=== PATIENT | male | born 1960 | race Caucasian/White ===

== ENCOUNTER 2021-04-06 08:53 | Emergency (ER) | payer OTHER, SELFPAY ==
[2021-04-06 09:11] VITALS: BP 129/88; PULSE 66; RESP 18; TEMP 36.8; O2SAT 96; BMI 36.8
--- NOTE | 2021-04-06 09:11 | XR_ITS ---
PROCEDURE INFORMATION: Exam: XR Left Knee Exam date and time: 04/06/2021 9:11 AM Age: 60 years old Clinical indication: Pain; Knee; Left TECHNIQUE: Imaging protocol: XR Left knee. Views: 3 views. COMPARISON: No relevant prior studies available. FINDINGS: Bones/joints: Normal. Soft tissues: Normal. IMPRESSION: No acute findings.
--- NOTE | 2021-04-06 09:59 | HMH.EDUTC ---
[facility] Disposition Clinical Impression: Left knee pain Qualifiers: Chronicity: acute Qualified Code(s): M25.562 - Pain in left knee Osteoarthritis of left knee Qualifiers: Osteoarthritis type: unspecified Qualified Code(s): M17.12 - Unilateral primary osteoarthritis, left knee Disposition: Home, Self-Care Condition on Discharge: Good Instructions: Osteoarthritis, DI for Osteoarthritis, DI for Knee Pain Additional Instructions: Rest the extremity, Elevate the extremity as tolerated while you are resting. Take the steroids as prescribed, Don't start them until tomorrow since you had the shot here. Follow up with Dr. Garnica (orthopedics). I put in a referral but you need to call his office and schedule an appointment. Follow up with your regular doctor. GO TO THE ER FOR ANY WORSENING SYMPTOMS Prescriptions: methylPREDNISolone [Medrol] 4 mg PO DIRECTED 6 Days #21 packet Transmission Status: Received by [facility] Referrals: Chidi Blue [Primary Care Provider] - Forms: Work/School Release Time of Disposition: 10:11 Medical Decision Making - Medical Records Medical records reviewed: No: I reviewed the patient's medical records. - Randy Inquiry Pt receiving controlled substance: No Vital Signs: 04/06/21 09:11 04/06/21 10:28 Temperature 98.2 F 98.2 F Temperature Source Oral Pulse Rate 66 Pulse Rate [Left] 66 Respiratory Rate 18 18 Blood Pressure 129/88 Blood Pressure [Right Arm] 129/88 Blood Pressure Mean [Right Arm] 101 02 Sat by Pulse Oximetry 96 Orders (Tests/Meds): ED MEDICATIONS Discontinued Medications Generic Name Dose Route Start Last Admin Trade Name Russell PRN Reason Stop Dose Admin Ketorolac Tromethamine 60 mg 04/06/21 09:58 04/06/21 10:25 Ketorolac 60mg/2ml Vial IM 04/06/21 09:59 60 mg ONCE ONE Administration Methylprednisolone Sodium Succinate 125 mg 04/06/21 09:58 04/06/21 10:25 Methylprednisolone Sod Succ 125mg Vial IM 04/06/21 09:59 125 mg ONCE ONE Administration - Radiology Data #1 Image(s): Knee Image Reviewed: Yes I reviewed the patient's radiology image, Yes I have reviewed radiologist's interpretation Preliminary Findings: Abnormal, No Fracture Seen [facility] HPI - General Stated complaint: lt knee pain Time Seen by Provider: 04/06/21 09:59 Mode of Arrival: Ambulatory Source of Information: Patient Limitations: No Limitations Description of Symptoms (Recalled from Triage Doc. by RN): pt c/o L knee pain x2 weeks. pt denies injury. pt states the last two days the pain has been much worse. pt is having difficulty walking and sleeping, he says it wakes him up at night. HEENT Symptoms (Recalled from RN notes): No Resp Symptoms (Recalled from RN notes): No Skin Symptoms (Recalled from RN notes): No MS Symptoms (Recalled from RN notes): Yes (L knee pain) Functional Status (Recalled from RN notes): na - History of Present Illness Provider Complaint: He c/o left knee pain for the past 3 weeks or so. He denies any injury. It is worse in the mornings when he first get out of bed. - Related Data Previous Rx's Medication Instructions Recorded methylPREDNISolone [Medrol] 4 mg PO DIRECTED 6 Days #21 04/06/21 packet Allergies Allergy/AdvReac Type Severity Reaction Status Date / Time No Known Allergies Allergy Verified 01/16/18 14:28 - Worker's Comp Is this a Worker's Comp case?: No [facility] History - Hepatitis A Screen Drug use history?: No High risk sexual behaviors?: No History of sexually transmitted infection?: No Currently employed?: No Childcare worker?: No Do you have indoor plumbing?: Yes Do you have electricity?: Yes Attestation statement:: This patient has been screened for Hepatitis A risk factors. I have reviewed the patient's past medical history: Yes Medical History: Denies:: Cancer, Diabetes Mellitus Type 1, Diabetes Mellitus Type 2, MRSA Amputation: No Fractures:
[2021-04-06 10:28] VITALS: BP 129/88; PULSE 66; RESP 18; TEMP 36.8
== END 2021-04-06 10:34 | disposition home or self-care (01) ==
PROVIDERS: Emergency Provider Nurse Practitioner Family; PCP Pediatrics
DX: M17.12 Unilateral primary osteoarthritis, left knee (principal)
CPT/HCPCS: 73562; 99202; G0463

== ENCOUNTER → 2021-09-30 18:04 | Outpatient (CLI) | payer OTHER, SELFPAY ==
[2021-09-30 18:34] LABS: MANUAL DIFFERENTIAL MANUAL DIFFERENTIAL (MANUAL DIFF); Microscopic, Urine URINE MICROSCOPIC (MICROSCOPIC)
[2021-09-30 18:45] LABS: Basophils # 0.3 K/mm3 (0-0.2); Eosinophils # 0.3 K/mm3 (0.0-0.4); Hematocrit 44.7 % (42.0-52.0); Hemoglobin 15.9 g/dL (14.1-18.0); Lymphocytes # 1.8 K/mm3 (0.7-4.5); Mean Corpuscular HGB Conc 35.5 g/dL (31.8-35.4); Mean Corpuscular Hemoglobin 32.8 pg (27.0-31.2); Mean Corpuscular Volume 92.4 fl (80-94); Mean Platelet Volume 10.2 fl (7.4-10.4); Monocytes # 0.5 K/mm3 (0.1-1.0); Monocytes % 6.3 % (1.7-9.3); Neutrophils # 5.5 K/mm3 (1.8-7.8); Neutrophils % 65.7 % (37.0-80.0); Platelet Count 190 K/mm3 (142-424); Red Blood Count 4.83 M/mm3 (4.60-6.20); Red Cell Distribution Width 13.8 % (11.5-17.5); White Blood Count 8.3 K/mm3 (4.8-10.8)
[2021-09-30 19:12] LABS: Chloride 106 mmol/L (98-107); Potassium 3.8 mmoL/L (3.5-5.1); Sodium 139 mmol/L (136-145)
[2021-09-30 19:15] LABS: Anion Gap 10.8 mEq/L (5-15); Blood Urea Nitrogen 15 mg/dl (9-20); Carbon Dioxide 26 mmol/L (22.0-30.0); Estimated Glomerular Filt Rate 86 ml/min (>60); GFR (African American) 104 ML/MIN (>60)
[2021-09-30 19:16] LABS: Calcium 9.2 mg/dl (8.4-10.2); Glucose 131 mg/dl (74-100)
[2021-09-30 19:27] LABS: Appearance,Urine CLEAR (Clear); Bilirubin,Urine Negative (Negative); Blood, Urine Negative (Negative); Color,Urine YELLOW (Yellow); Glucose,Urine (UA) Negative (Negative); Ketones,Urine Negative (Negative); Leukocyte Esterase,Urine Negative (Negative); Nitrate,Urine Negative (Negative); Protein,Urine Negative (Negative); Specific Gravity, Urine 1.025 (1.005-1.030); Urobilinogen,Urine 0.2 EU/dl (0.2)
[2021-09-30 19:40] LABS: Hypochromasia 1+; Lymphocytes % 13 % (10-50); Monocytes % 4 % (2-9); Neutrophils % 83 % (42-76); Platelet Estimate Normal; Total Cells Counted 100
== END ==
PROVIDERS: PCP Family Medicine; Visit Provider Surgery
DX: Z01.812 Encounter for preprocedural laboratory examination (principal); Z11.52 Encounter for screening for COVID-19; K42.0 Umbilical hernia with obstruction, without gangrene
CPT/HCPCS: 80048; 81001; 85007; 85014; 85018; 85048; 85049; C9803; U0003; U0005

== ENCOUNTER 2021-10-02 06:03 | Day surgery (SDC) | payer OTHER, SELFPAY ==
[2021-09-30 14:47] VITALS: BMI 37.0
[2021-10-02] VITALS (11 sets, daily range): BP systolic 120–143; BP diastolic 65–92; PULSE 54–71; RESP 16–18; TEMP 36.2–43; O2SAT 91–99
--- NOTE | 2021-10-02 06:18 | ECG_ITS ---
APPROVED REPORT Exam: Resting ECG HR:54 bpm ECG Measurements Heart Rate 54 AXES NC 191 P 14 QRSd 102 QRS 3 QT 439 T 14 QTc 424 Conclusion SINUS BRADYCARDIA PROBABLE INFERIOR MYOCARDIAL INFARCTION , PROBABLY OLD [35 ms Q WAVE IN II/aVF] ABNORMAL ECG UNCONFIRMED REPORT Electronically signed by : Nathen Maddox MD 10/02/2021 10:12:49
--- NOTE | 2021-10-02 07:07 | P.PN_ITS ---
[facility] Anesthesia Checklist - Patient Identification Patient Identification: Arm Band - Structural Data Admitted From: Home Planned Operative Procedure/s: Laparoscopic Umbilical Hernia Repair Consent for Planned Operative Procedure(s) Verified: Yes Verified Documents: Surgical Consent, History and Physical - NPO Status Verified Time NPO: 00:00 - Additional verifications Anesthesia Reactions: No Hx Blood Transfusions: No Blood Transfusion Reaction: No - Airway Assessment C-Spine Mobility Assessed: Yes (mp2) TMJ Mobility Assessed: Yes Dentition: Good Dentition - Neurological Assessment Level of Consciousness: Awake, Alert - Anesthesia Plan Anesthesia Risk discussed: Yes Anesthesia Plan: Verified ASA Class: III Anesthesia Type: General [facility] History I have reviewed the patient's past medical history: Yes Medical History: Reports:: Cancer (nose), Coronary Artery Disease, Hyperlipidemia Denies:: Diabetes Mellitus Type 1, Diabetes Mellitus Type 2, Internal Pacemaker, MRSA, Seizures *Have you ever received a pneumonia vaccine?: No *Have you received a flu vaccine this season?: No Other Medical History: Denies: Blood Transfusion Reaction Anesthesia experience/problems:: nac Other Surgeries: Yes: Cardiac Catheterization, Sinus Surgery. No: Pacemaker Amputation: No Fractures: No - *Social History Last grade of school completed: High school graduate Smoking Status: Never smoker Alcohol Intake: never Substance Use Type: denies use *Occupational Status:: employed *Travel in the last 8 weeks: None Family Hx:: No significant family history
--- NOTE | 2021-10-02 08:15 | HMH.OPNOTE ---
Date of procedure: 10/02/21 Pre-op Diagnosis:: Umbilical hernia with chronically-incarcerated preperitoneal fat versus omentum Post-op Diagnosis:: Umbilical hernia with chronically-incarcerated preperitoneal fat Procedure performed:: Open umbilical hernia repair (primary repair with no mesh) Surgeon:: Juvencio Anderson MD HOSPITAL[employer] WORKERS:: Willard James Anesthesia: GETA Estimated blood loss (mL): 10 Operative findings:: 1 cm umbilical defect Chronically-incarcerated preperitoneal fat Primary repair with 0 Ethibond Operative note:: After informed consent was obtained the patient was taken to the operating room and placed in the supine position. General anesthesia was induced and his abdomen was prepped and draped in a sterile fashion. After infiltration local anesthetic and curvilinear infraumbilical incision was made. The deep subcutaneous tissue was dissected with a combination of blunt dissection and electrocautery. The umbilical stump was carefully elevated and transected at its base. Incarcerated preperitoneal fat was encountered. A small portion of the preperitoneal fat was excised leaving a 1 cm defect. The decision was made to forego mesh placement. Primary repair of the defect with interrupted 0 Ethibond was completed. The deep subcutaneous tissue was reapproximated with interrupted 0 Vicryl. The umbilical stump was reapproximated with 2-0 Vicryl and skin was then closed with interrupted 4-0 Monocryl. Dressings were applied and the patient was transferred to recovery in stable condition. Condition: stable Disposition: PACU Specimens:: None Complications:: No immediate
--- NOTE | 2021-10-02 08:26 | P.PN_ITS ---
[facility] Anesthesia Record Part I Intake, IV Amount: 800 Estimated blood loss (mL): 10 Urine output (mL): 0 Blood Pressure: 143/92 SaO2: 91 Pulse Rate: 71 Respiratory Rate: 16 Temperature: 98.6 F Patient is:: Drowsy, Stable Stable to PACU at:: 08:25
--- NOTE | 2021-10-02 09:20 | PC.NURSE ---
pt did not want any additional pain medication in pacu
--- NOTE | 2021-10-06 07:36 | P.PN_ITS ---
[facility] Anesthesia Record Part II Discharge Time: 08:55 Destination: Surgical Day Care (OP Surgery) PACU nurse assessment reviewed?: Yes Patient Condition:: Good Anesthesia Complications:: None Swallowing reflex intact?: Yes Cyanosis?: No Blood Pressure: 132/81 Pulse Rate: 56 Temperature: 97.2 F Mental Status: Alert & Oriented Pain level:: 4 Nausea and/or vomitting:: None Intake, IV Amount: 0
[2021-10-06 07:37] VITALS: BP 132/81; PULSE 56; TEMP 36.2
== END 2021-10-02 09:37 | disposition home or self-care (01) ==
LOC: OR 06:06
PROVIDERS: PCP Pediatrics; Visit Provider Surgery
PROC: 0WQF4ZZ Repair Abdominal Wall, Percutaneous Endoscopic Approach (ICD-10-PCS; CPT 49587; principal; 2021-10-02 07:30)
DX: K42.0 Umbilical hernia with obstruction, without gangrene (principal); I25.10 Atherosclerotic heart disease of native coronary artery without angina pectoris; E87.5 Hyperkalemia; Z79.82 Long term (current) use of aspirin; Z79.899 Other long term (current) drug therapy
CPT/HCPCS: 49587; 93005; 96374; J2405; J2710